=== PATIENT | male | born 1980 | race Caucasian/White ===

== ENCOUNTER 2021-11-02 22:42 | Emergency (ER) | payer MEDICAID, SELFPAY ==
[2021-11-02 22:47] VITALS: BP 150/90; PULSE 80; O2SAT 100
--- NOTE | 2021-11-02 22:54 | PC.NURSE ---
Pt refusing to wear mask in hospital facility. nursing melter supervisor aware.
--- NOTE | 2021-11-02 23:51 | PC.NURSE ---
Nursing home health clinical supervisor provided similar education regarding Mask policy to be evaluated in ER. Pt stated i'm not a fucking sheep, I know about covid incentive. Pt reminded that he was welcome to be evaluated in ed but was required by hospital policy to wear a mask. Pt continues to refuse at this time.
== END 2021-11-03 00:19 | disposition left against medical advice (07) ==
LOC: HO.ED 11-03 00:06
PROVIDERS: Emergency Provider Emergency Medicine
DX: R11.10 Vomiting, unspecified (principal)